=== PATIENT | female | born 1935 | race Native Hawaiian/Other Pacific Islander ===

== ENCOUNTER 2016-10-11 09:03 | Outpatient (CLI) | payer OTHER | END 2016-10-11 19:11 | disposition home or self-care (01) | LOC: RAD 09:03 | DX: M81.0 Age-related osteoporosis without current pathological fracture (principal) ==

== ENCOUNTER 2016-11-12 12:17 | Emergency (ER) | payer OTHER ==
[~2016-11-12] VITALS: Ht 167.6 cm; Wt 54.4 kg
[2016-11-12 14:49] VITALS: BP 140/76; TEMP 98.4
== END 2016-11-12 14:52 | disposition home or self-care (01) ==
LOC: ED 12:17
DX: M50.31 Other cervical disc degeneration, high cervical region (principal); M50.321 Other cervical disc degeneration at C4-C5 level; M50.322 Other cervical disc degeneration at C5-C6 level; M50.323 Other cervical disc degeneration at C6-C7 level
CPT/HCPCS: 99282

== ENCOUNTER 2016-11-21 07:57 | Outpatient (CLI) | payer OTHER ==
[~2016-11-21] VITALS: Ht 160 cm; Wt 54.4 kg
[2016-11-21 08:10] VITALS: BP 114/69; TEMP 98.1
[2016-11-21 09:23] VITALS: BP 127/67; TEMP 98.5
== END 2016-11-21 11:00 | disposition home or self-care (01) ==
LOC: INF 07:57
DX: M81.0 Age-related osteoporosis without current pathological fracture (principal)
CPT/HCPCS: 36415; 82310; 96372; J0897

== ENCOUNTER 2017-03-30 12:16 | Observation (INO) | payer OTHER ==
[~2017-03-30] VITALS: Ht 160 cm; Wt 52.8 kg
[2017-03-30 13:14] VITALS: BP 115/55; TEMP 97.2; Ht 160 cm; Wt 52.8 kg
[2017-03-30 14:02] LABS: PLATELET COUNT 197 K/uL (152-353)
[2017-03-30 16:00] VITALS: BP 142/62; TEMP 98.1
[2017-03-30] MEDS ORDERED: [UNRECOGNIZED DRUG - CODE] TD (16:02)
[2017-03-30] MEDS ORDERED: BUSPIRONE15 MG PO (16:02)
[2017-03-30] MEDS ORDERED: VERA240T17 PO (16:03)
[2017-03-30] MEDS ORDERED: SIMV40TA57 PO (16:03)
[2017-03-30] MEDS ORDERED: ZESTRIL40 MG PO (16:03)
[2017-03-30] MEDS ORDERED: FLUTMIS6 INH (16:04)
[2017-03-30 17:31] LABS: POTASSIUM 3.1 mmol/L (3.6-5.2); SODIUM 136 mmol/L (136-145)
[2017-03-30 20:00] VITALS: BP 147/64; TEMP 98.3
[2017-03-31] VITALS: BP 147/62; TEMP 98.7
[2017-03-31 04:00] VITALS: BP 156/70; TEMP 98.4
[2017-03-31 05:39] LABS: PLATELET COUNT 167 K/uL (152-353)
[2017-03-31 05:57] LABS: POTASSIUM 3.2 mmol/L (3.6-5.2); SODIUM 138 mmol/L (136-145)
[2017-03-31 08:00] VITALS: BP 163/79; TEMP 98.6
[2017-03-31 12:00] VITALS: BP 153/76; TEMP 98.4
[2017-03-31 16:00] VITALS: BP 152/77; TEMP 98.7
[2017-03-31 20:23] VITALS: BP 126/56; BP 129/65; TEMP 98.4
[2017-04-01] VITALS: BP 165/82; TEMP 97.9
[2017-04-01 04:00] VITALS: BP 129/69; TEMP 97.5
[2017-04-01 05:17] LABS: PLATELET COUNT 173 K/uL (152-353)
[2017-04-01 05:48] LABS: SODIUM 139 mmol/L (136-145)
[2017-04-01 08:00] VITALS: BP 144/57; TEMP 98.2
[2017-04-01 12:00] VITALS: BP 125/64; TEMP 98.2
[2017-04-01 16:00] VITALS: BP 130/60; TEMP 98.2
[2017-04-01 20:00] VITALS: BP 153/78; TEMP 98.1
[2017-04-02] VITALS: BP 148/68; TEMP 98.7
[2017-04-02 04:00] VITALS: BP 152/74; TEMP 98.3
[2017-04-02 06:27] LABS: PLATELET COUNT 179 K/uL (152-353)
[2017-04-02 06:30] LABS: POTASSIUM 4.1 mmol/L (3.6-5.2); SODIUM 137 mmol/L (136-145)
[2017-04-02 08:00] VITALS: BP 132/60; TEMP 97.4
[2017-04-02 12:00] VITALS: BP 173/79; TEMP 97.7
== END 2017-04-02 15:15 | disposition home or self-care (01) ==
LOC: MED/SURG 12:16
PROVIDERS: ADMIT Family Medicine
DX: N39.0 Urinary tract infection, site not specified (principal); B95.61 Methicillin susceptible Staphylococcus aureus infection as the cause of diseases classified elsewhere; R41.82 Altered mental status, unspecified; R13.12 Dysphagia, oropharyngeal phase; E87.6 Hypokalemia; D64.89 Other specified anemias; I69.811 Memory deficit following other cerebrovascular disease; F01.50 Vascular dementia, unspecified severity, without behavioral disturbance, psychotic disturbance, mood disturbance, and anxiety
CPT/HCPCS: 36415; 36591; 80053; 81000; 82607; 83735; 84443; 85027; 87040; 87077; 87086; 87088; 87185; 87186; 94640; 94664; 94760; 96365; 96366; 96367; 99220; G0378; G0379

== ENCOUNTER 2017-04-24 11:02 | Emergency (ER) | payer OTHER ==
[~2017-04-24] VITALS: Ht 152.4 cm; Wt 49.9 kg
[~2017-04-24 11:02] MED LIST: BUSPIRONE15 MG PO; FLUTMIS6 INH; SIMV40TA57 PO; VERA240T17 PO; ZESTRIL40 MG PO; [UNRECOGNIZED DRUG - CODE] TD
[2017-04-24 12:37] LABS: PLATELET COUNT 147 K/uL (152-353)
[2017-04-24 12:47] LABS: POTASSIUM 4.1 mmol/L (3.6-5.2)
[2017-04-24 16:39] VITALS: TEMP 98.4
[2017-04-24 18:30] VITALS: BP 78/46
== END 2017-04-24 18:56 | disposition short-term general hospital (02) ==
LOC: ED 11:02
PROVIDERS: Emergency Medicine
DX: A15.0 Tuberculosis of lung (principal); R62.7 Adult failure to thrive; M62.82 Rhabdomyolysis; N18.3 Chronic kidney disease, stage 3 (moderate)
CPT/HCPCS: 36415; 80053; 81000; 82550; 82553; 84484; 85027; 87040; 87088; 96360; 96361; 96365; 96366; 99284; J2543